=== PATIENT | male | born 1950 | race African-American/Black ===

== ENCOUNTER → 2021-12-09 | Outpatient (RCR) | payer MEDICARE | LOC: ONC 11-20 09:55 | PROVIDERS: ATTEND Radiology Radiation Oncology | DX: C61 Malignant neoplasm of prostate (principal) | CPT/HCPCS: 99205 ==

== ENCOUNTER → 2022-03-11 | Outpatient (RCR) | payer MEDICARE | END | disposition home or self-care (01) | LOC: ONC 02-11 09:30 | PROVIDERS: ATTEND Radiology Radiation Oncology | DX: Z51.0 Encounter for antineoplastic radiation therapy (principal); C61 Malignant neoplasm of prostate | CPT/HCPCS: 77300; 77301; 77334; 77336; 77338; 77385 ==

== ENCOUNTER → 2022-04-08 | Outpatient (RCR) | payer MEDICARE | END | disposition home or self-care (01) | LOC: ONC 03-12 14:01 | PROVIDERS: ATTEND Radiology Radiation Oncology | DX: Z51.0 Encounter for antineoplastic radiation therapy (principal); C61 Malignant neoplasm of prostate | CPT/HCPCS: 77336; 77385 ==

== ENCOUNTER 2022-04-09 13:57 | Outpatient (RCR) | payer MEDICARE | END 2022-05-09 | disposition home or self-care (01) | LOC: ONC 13:57 | PROVIDERS: ATTEND Radiology Radiation Oncology | DX: Z51.0 Encounter for antineoplastic radiation therapy (principal); C61 Malignant neoplasm of prostate | CPT/HCPCS: 77336; 77385 ==

== ENCOUNTER 2022-05-22 09:55 | Outpatient (RCR) | payer MEDICARE | END 2022-06-08 | disposition home or self-care (01) | LOC: ONC 09:55 | PROVIDERS: ATTEND Radiology Radiation Oncology | DX: C61 Malignant neoplasm of prostate (principal) | CPT/HCPCS: 99213 ==